=== PATIENT | male | born 1955 | race American Indian/Alaskan Native ===

== ENCOUNTER 2022-05-13 07:32 | Day surgery (SDC) | payer OTHER, SELFPAY ==
[2022-05-08 11:55] VITALS: BMI 36.1
[2022-05-13] VITALS (9 sets, daily range): BP systolic 137–163; BP diastolic 82–95; PULSE 72–89; RESP 12–26; TEMP 35.9–36.3; O2SAT 95–100; BMI 34.8
[2022-05-13] MEDS: LACTATED RINGERS 1,000 ML 100 ML IV (08:19)
--- NOTE | 2022-05-13 08:25 | PM.PREOP ---
Pre-operative Note Interval Note History & Physical reviewed/Exam performed by Physician: Yes Changes to H&P: No
[2022-05-13] MEDS: ALBUTEROL 2.5 MG/3 ML NEB (ADULT) INH (08:32)
[2022-05-13] MEDS: CEFAZOLIN 2 GM/100 ML PREMIX 100 ML IV (08:49)
--- NOTE | 2022-05-13 09:01 | SUR.OPER ---
Supine on padded OR bed, head on pillow, arms secured on padded arm boards at <90 degrees abduction, legs uncrossed, safety belt at thigh,
[2022-05-13] MEDS: BUPIVACAINE 0.5% W/ EPI (PF) 30 ML VIAL INJ (09:06)
[2022-05-13] MEDS: OXYCODONE IR 5 MG TABLET PO (10:25)
--- NOTE | 2022-05-13 10:43 | SUR.PHASEII ---
Called OR #2. Received order for Toradol IV for pain, read back via [facility] and able to hear MD on telephone for pain.
[2022-05-13] MEDS: KETOROLAC 30 MG/ML VIAL IV (10:47)
--- NOTE | 2022-05-13 14:33 | PM.OP.1 ---
Operative Date/Time/Diagnoses Date of procedure: 05/13/22 Time of procedure: 14:33 Pre-op diagnosis: Right inguinal hernia Post-op diagnosis: same Procedure & Clinicians Procedure: Open right inguinal hernia repair with mesh Same procedure as scheduled: Yes Indications: Symptomatic reducible right inguinal hernia Surgeon: Kem Naik Anesthesia Type: General Operative Notes Findings: Moderate-size indirect defect. No direct floor defect Specimen(s): none sent Estimated Blood Loss (mL): 20 Procedure in detail: The patient was placed supine on the table and bilateral lower extremity compression devices were applied. Anesthesia was induced they were intubated with an LMA and received Ancef. A time-out was performed. They were prepped and draped in sterile fashion. The right external inguinal ring and the anterior superior iliac crest were identified and marked. 1 finger breath above the inguinal ligament the skin was infiltrated with 0.25% bupivacaine. The skin incision was made, the subcutaneous tissues were divided with electrocautery exposing the external oblique aponeurosis which was then opened along the direction of its fibers. Using blunt dissection the internal oblique aporneurosis was from the external oblique upper leaflet. The cord was carefully dissected away from the inguinal canal adjacent to the pubic tubercle. The cord including the vas deferens, testicular bloody supply, ilioguinal and genital nerve were encircled with a Lauren drain. No direct floor defect was identified. The cremasteric fibers surrounding the cord were divided adjacent to the internal ring. The vas deferens and the testicular vessels were preserved and protected. The cord contents were carefully explored. There was a moderate size indirect hernia on the anterior medial aspect of the cord which was skeletonized away from the vas deferens and testicular blood supply. The indirect hernia was skeletonized back to the internal ring. The sac was ligated with Vicryl suture excised and the stump reduced spontaneously into the abdomen. A 7x 15 cm lightweight Bard Pro Loop hernia mesh was anchored to the insertion of the rectus muscle at the pubic tubercle such that there was approximately 2 cm of tubercle overlap with Ethibond. The inferior edge of the mesh was secured to the shelving edge of the inguinal ligament using Ethibond. Interrupted 3 0 Vicryl suture was used to anchor the superior aspect of the mesh to the conjoined tendon in several places. The tails were then reapproximated loosely around the spermatic cord. The tails of the mesh were then tucked under the external oblique aponeurosis. The repair was checked for hemostasis. The wound was irrigated with sterile saline. The external oblique aponeurosis was reapproximated in a running fashion using 3 0 Vicryl. The subcutaneous tissues were reapproximated with 3 0 Vicryl skin closed with 4 0 Monocryl followed by the application of Dermabond. At the end of the operation I ensured that both testicles were within the scrotum. The sponge instrument count at the end operation was correct. The patient emerged from anesthesia was extubated and transferred to the postoperative care unit in stable condition. A total of 30 ml of of 0.25% bupivicaine was used to infiltrate the skin. Complications: none Post-operative Condition: stable Disposition: same day surgery
== END 2022-05-13 11:12 | disposition home or self-care (01) ==
PROVIDERS: PCP Internal Medicine; Referring Provider Surgery; Visit Provider Surgery
PROC: (CPT 49505; principal; 2022-05-13 08:45)
DX: K40.90 Unilateral inguinal hernia, without obstruction or gangrene, not specified as recurrent (principal); I48.91 Unspecified atrial fibrillation; E66.9 Obesity, unspecified; Z68.36 Body mass index [BMI] 36.0-36.9, adult
CPT/HCPCS: 49505; 82962; J0330; J0690; J1885; J2405; J2704; J3010; J7613

== ENCOUNTER → 2024-02-04 10:09 | Outpatient (CLI) | payer MEDICARE, SELFPAY ==
--- NOTE | 2024-02-04 10:14 | DI.RAD.S_ITS ---
PROCEDURE: XR LUMBAR SPINE 2-3V INDICATIONS: BACK PAIN TECHNIQUE: 3 views of the lumbar spine were acquired. COMPARISON: None. FINDINGS: Lumbar spine curvature and alignment: Normal. Bones: There are no osseous abnormalities. Disc spaces: Moderate L2-3 and L4-5 degenerative disc disease appreciated. There is moderate L4-5 and L5-S1 degenerative facet disease. Intervertebral foramen: Grossly normal in width. Soft tissues: 2 rounded lamellated calcifications in the right mid abdomen are each approximate 3.2 cm. Suspect gallstones. IMPRESSION: Degeneration. Probable gallstones. Consider ultrasound Dictated by: Shyam Henson M.D. on 02/07/2024 at 8:23 Approved by: Shyam Henson M.D. on 02/07/2024 at 8:25
== END ==
PROVIDERS: PCP Physician Assistant; Referring Provider Family Medicine; Visit Provider Family Medicine
DX: M51.36 Other intervertebral disc degeneration, lumbar region (principal); M47.816 Spondylosis without myelopathy or radiculopathy, lumbar region; M47.817 Spondylosis without myelopathy or radiculopathy, lumbosacral region; M54.50 Low back pain, unspecified
CPT/HCPCS: 72100